=== PATIENT | female | born 2000 | race Caucasian/White ===

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

== ENCOUNTER 2020-01-01 11:29 | Emergency (ER) | payer OTHER ==
[~2020-01-01] VITALS: Ht 162.5 cm; Wt 59.9 kg
[~2020-01-01 11:29] MED LIST: ARIP2TAB20 PO; ARIPIPRAZOLE 2 MG TABLET; CETI10TA17 PO; MONO-LINYAH 28 TABLET; NORG1TAB77 PO; SERT100T8 PO; SERTRALINE HCL 100 MG TABLET
[2020-01-01 11:41] VITALS: BP 120/75
--- OUTSIDE RECORDS SUMMARY | 2020-01-01 11:45 | XMS REPORT | CCD ---
Author Author Melani Hussein Organization Raquel Aviles MD, [facility] Address [address] [place] [address] Phone Care Team Providers Care Agency Operator Name Role Phone PP Unavailable CCM Unavailable Summary Purpose Interface Exchange Insurance Providers Payer name Policy type / Coverage type Covered constitution party ID Effective Begin Date Effective End Date LEWIS PORTILLO (2012 THRU) Ozzy [id number] Unknown Family history Runs in the family Diagnosis Age At Onset Anemia Unknown Hyperlipidemia Unknown Thyroid Unknown Mother Diagnosis Age At Onset Anemia Unknown Social History Social History Element Codes Description Effective Dates Marital status Unknown S renato Co-habitating - Tana fina) Koki 04/18/2019 Number of children Unknown 0 04/18/2019 Employment Unknown Curre ntly employed [employer] 04/18/[address]: 8999539 Quit less than 5 years ago 04/18/[address]: 463003280 Never drinks alcohol 04/18/2019 Has the patient ever used illegal drugs? Unknown Has never used illegal drugs 019 Allergies, Adverse Reactions, Alerts Substance Reaction Codes Entered Date Inactivated Date Status NO KNOWN DRUG ALLERGIES Unknown 04/18/2019 No Inactive Date Active Past Medical History Illness Codes Condition Status Onset Date Resolved Date Encounter for survei llance of contraceptive pills ICD-9: V25.41 ICD-10: Z30.41 Active 04/18/2019 Unknown Generalized anxiety disorder ICD-9: 300.00 ICD-10: F41.1 Active 04/18/2019 Unknown Major depressive dis order, single episode, moderate ICD-9: 296.22 ICD-10: F32.1 Active 04/18/2019 Unknown Problems Condition Codes Effectiv e Dates Condition Status Encounter for survei llance of contraceptive pills ICD-9: V25.41 ICD-10: Z30.41 04/18/2019 Active Generalized anxiety disorder ICD-9: 300.00 ICD-10: F41.1 04/18/2019 Active Major depressive dis order, single episode, moderate ICD-9: 296.22 ICD-10: F32.1 04/18/2019 Active Medications Medication Codes Instruc tions Start Date Stop Date Sta tus Fill Instructions [place]-Linyah 0.25 mg- 35 mcg tablet RxNorm: 7141423 1 Tablet(s) PO UD 04/18/2019 No Stop Date Active Abilify 2 mg tablet RxNorm: 195546 1 Tablet(s) PO daily No Start Date Active Zoloft 50 mg tablet RxNorm: 402342 1 Tablet(s) PO daily No Start Date Active Medication Administered No Medication Administered data Immunizations No Immunization data Assessments Condition Codes Effectiv e Dates Generalized anxiety disorder ICD-10: F41.1 ICD-9: 300.00 04/18/2019 Major depressive disorder, single episode, moderate ICD-10: F32.1 ICD-9: 296.22 04/18/2019 Encounter for surveillance of contraceptive pills ICD-10: Z30.41 ICD-9: V25.41 04/18/2019 Reason For Visit Reason For Visit Effective Dates Notes medication follow up 04/18/2019 refill Results Observation Observation Code Item Item Code Result Date Urine Bhcg [id number] Urine BHCG Negative 04/18/2019 Review of Systems System Result Effective Dates Constitutional No recent illness 04/18/2019 Constitutional No chills 04/18/2019 Constitutional No diaphoresis 04/18/2019 Constitutional No fever 04/18/2019 Eyes No eye erythema Ears/Nose/Throat/Neck No nasal allergies 04/18/2019 Ears/Nose/Throat/Neck No nasal discharge 04/18/2019 Cardiovascular No chest pain/pressure 04/18/2019 Cardiovascular No dyspnea 04/18/2019 Respiratory No chest congestion 04/18/2019 Respiratory No cough Gastrointestinal No abdominal pain 04/18/2019 Gastrointestinal No constipation 04/18/2019 Gastrointestinal No diarrhea 04/18/2019 Gastrointestinal No hematochezia 04/18/2019 Gastrointestinal No melena 04/18/2019 Gastrointestinal No nausea 04/18/2019 Gastrointestinal No vomiting 04/18/2019 Musculoskeletal No joint complaint 04/18/2019 Dermatologic No rash Neurologic No alteration of consciousness 04/18/2019 Neurologic No mental status change 04/18/2019 Physical Exam Exam Name System Name It em Name Status Result Effective Dates Notes Full Exam - General 1994 Constitutional general appearance Overall: well developed 04/18/2019 None Full Exam - General 1994 Constitutional general appearance Overall: in no acute distress 04/18/2019 None Full Exam - General 1994 Constitutional general appearance Overall: well nourished 04/18/2019 None Full Exam - General 1994 Eyes conjunctiva/eyelids Overall: conjunctiva clear 04/18/2019 None Full Exam - General 1994 Eyes conjunctiva/eyelids Overall: cornea clear 04/18/2019 None Full Exam - General 1994 Eyes conjunctiva/eyelids Overall: eyelids normal 04/18/2019 None Full Exam - General 1994 Eyes pupils and irises Overall: pupils equal, round, reactive to light and accomodation 04/18/2019 None Full Exam - General 1994 Ears/Nose/Throat otoscopic exam Overall: external auditory canals clear 04/18/2019 None Full Exam - General 1994 Ears/Nose/Throat otoscopic exam Overall: tympanic membranes clear 04/18/2019 None Full Exam - General 1994 Ears/Nose/Throat lips/teeth/gingiva Overall: benign lips 04/18/2019 None Full Exam - General 1994 Ears/Nose/Throat oral cavity/pharynx/larynx Overall: oral mucosa clear 04/18/2019 None Full Exam - General 1994 Ears/Nose/Throat oral cavity/pharynx/larynx Overall: oropharyngeal mucosa clear 04/18/2019 None Full Exam - General 1994 Respiratory auscultation Overall: breath sounds clear bilaterally 04/18/2019 None Full Exam - General 1994 Respiratory respiratory effort/rhythm Overall: no retractions 04/18/2019 None Full Exam - General 1994 Respiratory respiratory effort/rhythm Overall: normal rate 04/18/2019 None Full Exam - General 1994 Cardiovascular extremities Overall: no clubbing 04/18/2019 None Full Exam - General 1994 Cardiovascular auscultation of heart Overall: regular rate 04/18/2019 None Full Exam - General 1994 Cardiovascular auscultation of heart Overall: normal heart sounds 04/18/2019 None Full Exam - General 1994 Abdomen abdominal exam Overall: no tenderness 04/18/2019 None Full Exam - General 1994 Abdomen abdominal exam Overall: normal bowel sounds 04/18/2019 None Full Exam - General 1994 Musculoskeletal gait and station Overall: normal gait 04/18/2019 None Full Exam - General 1994 Musculoskeletal gait and station Overall: normal station 04/18/2019 None Full Exam - General 1994 Musculoskeletal head and neck Overall: head atraumatic 04/18/2019 None Full Exam - General 1994 Neurologic cranial nerves Overall: crainial nerves 2 - 12 grossly intact 04/18/2019 None Full Exam - General 1994 Psychiatric orientation/consciousness Overall: oriented to person, place and time 04/18/2019 None Full Exam - General 1994 Psychiatric mood and affect Overall: normal mood and affect 04/18/2019 None Full Exam - General 1994 Psychiatric appearance Overall: well-groomed, good eye contact 04/18/2019 None Procedures No Procedures data Vital Signs Date Vital 04/18/2019 Blood Pressure 1: 108/66 Code: 8480-6 BMI: 22.3 Code: 79442-9 Heart Rate 1: 81 bpm Height: 5'4" SpO2: 97% Weight: 130 lbs Functional Status No Functional Status data History of Present Illness Symptom Name Status Resu lt Effective Date Notes Additional Comments me dication: OCP 04/18/2019 None Location oral intake 04/18/2019 None Quality chronic 04/18/2019 None Advance Directives No Advance Directive data Encounters Encounter Performer Loca tion Codes Date OFFICE VISIT, NEW - LEVEL 3 Diagnosis: Encounter for surveillance of contraceptive pills[ICD10: Z30.41] Diagnosis: Generalized anxiety disorder[ICD10: F41.1] Diagnosis: Major depressive disorder, single episode, moderate[ICD10: F32.1] Albertina Aviles MD, [facility] CPT-4: 85249 04/18/2019 Plan of Care Planned Activity Notes C odes Status Date Visit Plan: control - will re fill, no concerns at this time. Chronic Depression and anxiety - the pt has symptoms of chronic anxiety and depression that have been fairly well controlled since the last office visit. The pt has expected periods of exacerbation with abatement of the symptoms with change in situational exposure. No change in current medications. 04/18/2019 Appointment: Albertina Hussein WPtel: [address] [place], [place] [id number] New Patient 04/18/2019 Patient Education: Patient Medication Summary Completed 04/18/2019 Patient Education: Depression Completed 04/18/2019 Instructions Comment . control - wi ll refill, no concerns at this time. Chronic Depression and anxiety - the pt has symptoms of chronic anxiety and depression that have been fairly well controlled since the last office visit. The pt has expected periods of exacerbation with abatement of the symptoms with change in situational exposure. No change in current medications.
--- OUTSIDE RECORDS SUMMARY | 2020-01-01 11:45 | XMS REPORT | CCD ---
Author Author Melani Hussein Organization Raquel Aviles MD, [facility] Address [address] [place] [address] Phone Care Team Providers Care Photo Mask Pattern Generator Name Role Phone PP Unavailable CCM Unavailable Summary Purpose Interface Exchange Insurance Providers Payer name Policy type / Coverage type Covered libertarian ID Effective Begin Date Effective End Date LEWIS PORTILLO (2012 THRU) Ozzy [id number] Unknown Family history Runs in the family Diagnosis Age At Onset Anemia Unknown Hyperlipidemia Unknown Thyroid Unknown Mother Diagnosis Age At Onset Anemia Unknown Social History Social History Element Codes Description Effective Dates Marital status Unknown S renato Co-habitating - Tana fina) Koki 04/18/2019 Number of children Unknown 0 04/18/2019 Employment Unknown Curre ntly employed [employer] 04/18/[address]: 8365404 Quit less than 5 years ago 04/18/[address]: 800745120 Never drinks alcohol 04/18/2019 Has the patient [...] Date Stop Date Sta tus Fill Instructions Abilify 2 mg tablet RxNorm: 978790 1 Tablet(s) PO daily 05/18/2019 07/16/2019 Active Zoloft 50 mg tablet RxNorm: 726519 1 Tablet(s) PO daily 05/18/2019 07/16/2019 Active [place]-Linyah 0.25 mg- 35 mcg tablet RxNorm: 0874255 1 Tablet(s) PO UD 04/18/2019 No Stop Date Active Abilify 2 mg tablet RxNorm: 728954 1 Tablet(s) PO daily No Start Date 05/17/2019 Inactive Zoloft 50 mg tablet RxNorm: 944499 1 Tablet(s) PO daily No Start Date 05/17/2019 Inactive Medication Administered No Medication Administered data Immunizations [...] Item Item Code Result Date Urine Bhcg [id number] Urine BHCG Negative 04/18/2019 Review of Systems [...] 1: 108/66 Code: 8480-6 BMI: 22.3 Code: 06424-9 Heart Rate 1: 81 bpm Height: 5'4" [...] single episode, moderate[ICD10: F32.1] [facility] CPT-4: 97001 04/18/2019 Plan of Care Planned Activity Notes [...] current medications. 04/18/2019 Appointment: Albertina Hussein WPtel: [address] [place], [place] [id number] New Patient 04/18/2019 Patient Education: Patient Medication [...]
--- OUTSIDE RECORDS SUMMARY | 2020-01-01 11:46 | XMS REPORT | CCD ---
Author Author Melani Hussein Organization Raquel Aviles MD, [facility] Address [address] [place] [address] Phone Care Team Providers Care Posting Machine Operator Name Role Phone PP Unavailable CCM Unavailable Summary Purpose Interface Exchange Insurance Providers Payer name Policy type / Coverage type Covered democrat ID Effective Begin Date Effective End Date LEWIS PORTILLO (2012 THRU) Ozzy [id number] Unknown Family history Runs in the family Diagnosis Age At Onset Anemia Unknown Hyperlipidemia Unknown Thyroid Unknown Mother Diagnosis Age At Onset Anemia Unknown Social History Social History Element Codes Description Effective Dates Marital status Unknown S renato Co-habitating - Tana fina) Koki 04/18/2019 Number of children Unknown 0 04/18/2019 Employment Unknown Curre ntly employed [employer] 04/18/[address]: 3409176 Quit less than 5 years ago 04/18/[address]: 110966452 Never drinks alcohol 04/18/2019 Has the patient [...] Date Stop Date Sta tus Fill Instructions [place]-Linyah 0.25 mg- 35 mcg tablet RxNorm: 3327613 1 Tablet(s) PO UD 04/18/2019 No Stop Date Active Abilify 2 mg tablet RxNorm: 447787 1 Tablet(s) PO daily No Start Date Active Zoloft 50 mg tablet RxNorm: 654098 1 Tablet(s) PO daily No Start Date [...] Notes medication follow up 04/18/2019 refill Results No Results data Review of Systems System Result Effective Dates [...] Effective Dates Notes Full Exam - General 1995 Constitutional general appearance Overall: well developed 04/18/2019 [...] 1: 108/66 Code: 8480-6 BMI: 22.3 Code: 48737-4 Heart Rate 1: 81 bpm Height: 5'4" [...] moderate[ICD10: F32.1] [facility] CPT-4: 39244 04/18/2019 Plan of Care Planned Activity Notes [...] exposure. No change in current medications. 04/18/2019 Patient Education: Patient Medication Summary Completed 04/18/2019 Patient Education: Depression Completed 04/18/2019 Care Plan: Urine Bhcg Ordered 04/18/2019 Instructions Comment . control - wi [...]
--- OUTSIDE RECORDS SUMMARY | 2020-01-01 11:46 | XMS REPORT | Continuity of Care Document ---
Author Organization Unknown Address Unknown Phone Unavailable Allergies Active Description Code Type Severity Reaction Onset Reported/Identified Relationship to Patient Clinical Status Yes No Known Drug Allergies [id number] Drug Allergy Unknown N/A 12/11/2018 Medications There is no data. Problems Date Dx Coded Attending Type Code Diagnosis Diagnosed By 12/12/2018 DEBBY POTTER, CONCEPCIÓN Arreloa Ot F17.290 NICOTINE DEPENDENCE, OTHER TOBACCO PRODU 12/12/2018 CONCEPCIÓN GUARDADO MD, Ot F32.9 MAJOR DEPRESSIVE DISORDER, SINGLE EPISOD 12/12/2018 CONCEPCIÓN GUARDADO MD, Ot F34.1 DYSTHYMIC DISORDER 12/12/2018 CONCEPCIÓN GUARDADO MD, Ot F41.9 ANXIETY DISORDER, UNSPECIFIED 12/12/2018 CONCEPCIÓN GUARDADO MD, Ot T45.0X2A POISONING BY ANTIALLERG/ANTIEMETIC, SELF Procedures There is no data. Results Test Result Range Complete blood count (CBC) with automate d white blood cell (WBC) differential - 12/11/18 17:55 Blood leukocytes automated count (number/volume) 6.7 10*3/uL 4.3-11.0 Blood erythrocytes automated count (number/volume) 4.09 10*6/uL 4.35-5.85 Venous blood hemoglobin measurement (mass/volume) 12.5 g/dL 11.5-16.0 Blood hematocrit (volume fraction) 36 % 35-52 Automated erythrocyte mean corpuscular volume 88 [ foz_us] 80-99 Automated erythrocyte mean corpuscular h emoglobin (mass per erythrocyte) 31 pg 25-34 Automated erythrocyte mean corpuscular h emoglobin concentration measurement (mass/volume) 35 g/dL 32-36 Automated erythrocyte distribution width ratio 12. 6 % 10.0- 14.5 Automated blood platelet count (count/volume) 278 10*3/uL 130-400 Automated blood platelet mean volume measurement 9.6 [foz_us] 7.4-10.4 Automated blood neutrophils/100 leukocytes 56 % 42-75 Automated blood lymphocytes/100 leukocytes 33 % 12-44 Blood monocytes/100 leukocytes 7 % 0-12 Automated blood eosinophils/100 leukocytes 4 % 0-10 Automated blood basophils/100 leukocytes 0 % 0-10 Blood neutrophils automated count (number/volume) 3.8 10*3 1.8-7.8 Blood lymphocytes automated count (number/volume) 2.2 10*3 1.0-4.0 Blood monocytes automated count (number/volume) 0. 5 10*3 0.0-1.0 Automated eosinophil count 0.3 10*3/uL 0 .0-0.3 Automated blood basophil count (count/volume) 0.0 10*3/uL 0.0-0.1 Comprehensive metabolic panel - 12/11/18 17:55 Serum or plasma sodium measurement (moles/volume) 142 mmol/L 135-145 Serum or plasma potassium measurement (moles/volume) 4.2 mmol/L 3.6-5.0 Serum or plasma chloride measurement (moles/volume) 107 mmol/L 98-107 Carbon dioxide 26 mmol/L 21-32 Serum or plasma anion gap determination (moles/volume) 9 mmol/L 5-14 Serum or plasma urea nitrogen measurement (mass/volume ) 8 mg/dL 7-18 Serum or plasma creatinine measurement (mass/volume) 0.75 mg/dL 0.60-1.30 Serum or plasma urea nitrogen/creatinine mass ratio 11 NRG Serum or plasma creatinine measurement w ith calculation of estimated glomerular filtration rate > NRG Serum or plasma glucose measurement (mass/volume) 95 mg/dL 70-105 Serum or plasma calcium measurement (mass/volume) 9.7 mg/dL 8.5-10.1 Serum or plasma total bilirubin measurement (mass/volu me) 0.6 mg/dL 0.1-1.0 Serum or plasma alkaline phosphatase lori surement (enzymatic activity/volume) 57 U/L 40-136 Serum or plasma aspartate aminotransfera se measurement (enzymatic activity/volume) 21 U/L 5-34 Serum or plasma alanine aminotransferase measurement (enzymatic activity/volume) 13 U/L 0-55 Serum or plasma protein measurement (mass/volume) 7.0 g/dL 6.4-8.2 Serum or plasma albumin measurement (mass/volume) 4.2 g/dL 3.2-4.5 CALCIUM CORRECTED 9.5 mg/dL 8.5-10.1 Serum or plasma amylase measurement (enz ymatic activity/volume) - 12/11/18 17:55 Serum or plasma amylase measurement (enzymatic activit y/volume) 52 U/L 25-125 Complete urinalysis with reflex to cultu re - 12/11/18 17:55 Urine color determination YELLOW NRG Urine clarity determination SLIGHTLY CLOUDY NRG Urine pH measurement by test strip 6 5-9 Specific gravity of urine by test strip 1.020 1.016-1.022 Urine protein assay by test strip, semi-quantitative NEGATIVE NEGATIVE Urine glucose detection by automated test strip NE GATIVE NEGATIVE Erythrocytes detection in urine sediment by light micr oscopy 5+ NEGATIVE Urine ketones detection by automated test strip NE GATIVE NEGATIVE Urine nitrite detection by test strip NEGATIVE NEGATIVE Urine total bilirubin detection by test strip NEGA TIVE NEGATIVE Urine urobilinogen measurement by automated test strip (mass/volume) NORMAL NORMAL Urine leukocyte esterase detection by dipstick NEG ATIVE NEGATIVE Automated urine sediment erythrocyte cou nt by microscopy (number/high power field) [HPF] NRG Automated urine sediment leukocyte count by microscopy (number/high power field) NONE NRG Bacteria detection in urine sediment by light microsco py TRACE NRG Squamous epithelial cells detection in u rine sediment by light microscopy 2-5 NRG Crystals detection in urine sediment by light microsco py NONE NRG Casts detection in urine sediment by light microscopy NONE NRG Mucus detection in urine sediment by light microscopy SMALL NRG Complete urinalysis with reflex to culture NO NRG Serum or plasma salicylates measurement (mass/volume) - 12/11/18 17:55 Serum or plasma salicylates measurement (mass/volume) < mg/dL 5.0-20.0 Serum or plasma acetaminophen measuremen t (mass/volume) - 12/11/18 17:55 Serum or plasma acetaminophen measurement (mass/volume ) < ug/mL 10-30 Serum or plasma ethanol measurement (mas s/volume) - 12/11/18 17:55 Serum or plasma ethanol measurement (mass/volume) < mg/dL <10 Urine beta human chorionic gonadotropin (hCG) measurement - 12/11/18 17:55 Urine beta human chorionic gonadotropin (hCG) measurem ent NEGATIVE NEGATIVE Serum or plasma thyrotropin measurement by detection limit <=0.05 miu/l (units/volume) - 12/11/18 17:55 Serum or plasma thyrotropin measurement by detection limit <=0.05 miu/l (units/volume) 2.00 u[iU]/mL 0.35-4.94 Urine drug screening test - 12/11/18 17: 55 Urine phencyclidine detection by screening method NEGATIVE NEGATIVE Urine benzodiazepines detection by screening method NEGATIVE NEGATIVE Urine cocaine detection NEGATIVE NEGATI VE Urine amphetamines detection by screening method N EGATIVE NEGATIVE Urine methamphetamine detection by screening method NEGATIVE NEGATIVE Urine cannabinoids detection by screening method N EGATIVE NEGATIVE Urine opiates detection by screening method NEGATI VE NEGATIVE Urine barbiturates detection NEGATIVE N EGATIVE Screening urine tricyclic antidepressants detection NEGATIVE NEGATIVE Urine methadone detection by screening method NEGA TIVE NEGATIVE Urine oxycodone detection NEGATIVE NEGA TIVE Urine propoxyphene detection NEGATIVE N EGATIVE Complete blood count (CBC) with automate d white blood cell (WBC) differential - 12/12/18 03:35 Blood leukocytes automated count (number/volume) 7.1 10*3/uL 4.3-11.0 Blood erythrocytes automated count (number/volume) 4.32 10*6/uL 4.35-5.85 Venous blood hemoglobin measurement (mass/volume) 13.2 g/dL 11.5-16.0 Blood hematocrit (volume fraction) 38 % 35-52 Automated erythrocyte mean corpuscular volume 89 [ foz_us] 80-99 Automated erythrocyte mean corpuscular h emoglobin (mass per erythrocyte) 31 pg 25-34 Automated erythrocyte mean corpuscular h emoglobin concentration measurement (mass/volume) 34 g/dL 32-36 Automated erythrocyte distribution width ratio 12. 7 % 10.0- 14.5 Automated blood platelet count (count/volume) 268 10*3/uL 130-400 Automated blood platelet mean volume measurement 9.7 [foz_us] 7.4-10.4 Automated blood neutrophils/100 leukocytes 47 % 42-75 Automated blood lymphocytes/100 leukocytes 41 % 12-44 Blood monocytes/100 leukocytes 8 % 0-12 Automated blood eosinophils/100 leukocytes 4 % 0-10 Automated blood basophils/100 leukocytes 0 % 0-10 Blood neutrophils automated count (number/volume) 3.3 10*3 1.8-7.8 Blood lymphocytes automated count (number/volume) 2.9 10*3 1.0-4.0 Blood monocytes automated count (number/volume) 0. 6 10*3 0.0-1.0 Automated eosinophil count 0.3 10*3/uL 0 .0-0.3 Automated blood basophil count (count/volume) 0.0 10*3/uL 0.0-0.1 Comprehensive metabolic panel - 12/12/18 03:35 Serum or plasma sodium measurement (moles/volume) 143 mmol/L 135-145 Serum or plasma potassium measurement (moles/volume) 4.0 mmol/L 3.6-5.0 Serum or plasma chloride measurement (moles/volume) 109 mmol/L 98-107 Carbon dioxide 24 mmol/L 21-32 Serum or plasma anion gap determination (moles/volume) 10 mmol/L 5-14 Serum or plasma urea nitrogen measurement (mass/volume ) 8 mg/dL 7-18 Serum or plasma creatinine measurement (mass/volume) 0.72 mg/dL 0.60-1.30 Serum or plasma urea nitrogen/creatinine mass ratio 11 NRG Serum or plasma creatinine measurement w ith calculation of estimated glomerular filtration rate > NRG Serum or plasma glucose measurement (mass/volume) 94 mg/dL 70-105 Serum or plasma calcium measurement (mass/volume) 9.4 mg/dL 8.5-10.1 Serum or plasma total bilirubin measurement (mass/volu me) 0.4 mg/dL 0.1-1.0 Serum or plasma alkaline phosphatase lori surement (enzymatic activity/volume) 68 U/L 40-136 Serum or plasma aspartate aminotransfera se measurement (enzymatic activity/volume) 14 U/L 5-34 Serum or plasma alanine aminotransferase measurement (enzymatic activity/volume) 9 U/L 0-55 Serum or plasma protein measurement (mass/volume) 7.2 g/dL 6.4-8.2 Serum or plasma albumin measurement (mass/volume) 4.3 g/dL 3.2-4.5 CALCIUM CORRECTED 9.2 mg/dL 8.5-10.1 Encounters ACCT No. Visit Date/Time Discharge Status Pt. Type Provider Facility Loc./Unit Complaint [id number] 04/12/2019 14:49:25 04/12/2019 23:59:5 9 CLS Outpatient [id number] 12/11/2018 19:55:00 019 15:55:00 DIS Outpatient SANDNESS MD, CONCEPCIÓN Arreola [facility] ICU INTENTION DRUG OVERDOSE, SUICIDE ATTEMPT
[2020-01-01 12:39] LABS: BILIRUBIN,URINE NEGATIVE (NEGATIVE); CLARITY,URINE CLEAR; COLOR,URINE YELLOW; GLUCOSE, URINE (UA) NEGATIVE (NEGATIVE); KETONES,URINE NEGATIVE (NEGATIVE); LEUKOCYTE ESTERASE ,URINE NEGATIVE (NEGATIVE); NITRITE,URINE NEGATIVE (NEGATIVE); PROTEIN,URINE NEGATIVE (NEGATIVE)
[2020-01-01 12:45] LABS: BACTERIA,URINE TRACE /HPF; RBC,URINE RARE /HPF
[2020-01-01 12:47] LABS: BASOPHILS % (AUTO) 1 % (0-10); EOSINOPHILS # (AUTO) 0.4 10^3/uL (0.0-0.3); EOSINOPHILS % (AUTO) 6 % (0-10); HEMATOCRIT 36 % (35-52); HEMOGLOBIN 12.2 G/DL (11.5-16.0); LYMPHOCYTES # (AUTO) 2.4 X 10^3 (1.0-4.0); LYMPHOCYTES % (AUTO) 39 % (12-44); MEAN CORPUSCULAR HEMOGLOBIN 30 PG (25-34); MEAN CORPUSCULAR HGB CONC 34 G/DL (32-36); MEAN CORPUSCULAR VOLUME 88 FL (80-99); MEAN PLATELET VOLUME 9.5 FL (7.4-10.4); MONOCYTES # (AUTO) 0.5 X 10^3 (0.0-1.0); MONOCYTES % (AUTO) 8 % (0-12); NEUTROPHILS # (AUTO) 2.9 X 10^3 (1.8-7.8); NEUTROPHILS % (AUTO) 47 % (42-75); PLATELET COUNT 245 10^3/uL (130-400); RED CELL DISTRIBUTION WIDTH 12.6 % (10.0-14.5); WHITE BLOOD COUNT 6.2 10^3/uL (4.3-11.0)
[2020-01-01 12:49] LABS: AMPHETAMINE SCREEN, URINE NEGATIVE (NEGATIVE); BARBITURATE SCREEN URINE NEGATIVE (NEGATIVE); BENZODIAZEPINES SCREEN URINE NEGATIVE (NEGATIVE); CANNABINOID SCREEN, URINE NEGATIVE (NEGATIVE); COCAINE SCREEN URINE NEGATIVE (NEGATIVE); METHADONE STAT NEGATIVE (NEGATIVE); METHAMPHETAMINE SCREEN URINE S NEGATIVE (NEGATIVE); OPIATE SCREEN URINE NEGATIVE (NEGATIVE); OXYCODONE STAT NEGATIVE (NEGATIVE); PROPOXYPHENE STAT NEGATIVE (NEGATIVE); TRICYCLIC ANTIDEPRESSANTS SCRE NEGATIVE (NEGATIVE)
[2020-01-01 13:06] LABS: ALANINE AMINOTRANSFERASE 7 U/L (0-55); ALBUMIN 4.2 GM/DL (3.2-4.5); ALKALINE PHOSPHATASE 52 U/L (40-136); BILIRUBIN,TOTAL 0.4 MG/DL (0.1-1.0); BUN/CREATININE RATIO 14; CALCIUM 9.4 MG/DL (8.5-10.1); CARBON DIOXIDE 25 MMOL/L (21-32); CHLORIDE 106 MMOL/L (98-107); GFR ESTIMATED > 60; GLUCOSE 78 MG/DL (70-105); POTASSIUM 3.9 MMOL/L (3.6-5.0); SALICYLATE < 5.0 MG/DL (5.0-20.0); SODIUM 141 MMOL/L (135-145)
[2020-01-01 13:09] LABS: ACETAMINOPHEN < 10 UG/ML (10-30)
--- NOTE | 2020-01-01 13:10 | ED Psychosocial ---
General Chief Complaint: Psych/Social Disorder Stated Complaint: SUICIDAL THOUGHTS Nursing Triage Note: Pt amb to triage with complaint of suicidal thoughts. she called the [facility] in [place] and was instructed to come to ER to be screened. [facility] she follows monthly with [facility]. has not called them today. has been having increasing suicidal thoughts and has superficial healing cuts on forearms. History of Present Illness Date Seen by Provider: Jan 01, 2020 Time Seen by Provider: 11:50 Initial Comments 19 year old female presents for depression and suicidal ideation. Symptoms have been present for 1-1 1/2 weeks. Does not have plan and has no guns/knives in her home. She lives with her fiance and works at [employer]. She sees counselors at [facility]. She has not contacted them or called [facility]. She took allergy pills in 2018 and was admitted here. She was [place] inpatient treatment of depression at age 14, [place]. History of cutting, reports last cutting was 2-3 days, superficial on arms. Timing/Duration: getting worse, intermittent Severity: mild Associated Symptoms: impaired concentration, insomnia, suicidal ideation Allergies and Home Medications Allergies Coded Allergies: No Known Drug Allergies (Unverified , 12/11/18) Home Medications Aripiprazole 2 Mg Tablet, 1 MG PO HS, (Reported) TAKES 1/2 (2MG) TABLET Cetirizine HCl 10 Mg Tablet, 10 MG PO DAILY PRN for ALLERGIES, (Reported) Norgestimate-Ethinyl Estradiol 1 Each Tablet, 1 TAB PO 1300, (Reported) Sertraline HCl 100 Mg Tablet, 100 MG PO DAILY, (Reported) Patient Home Medication List Home Medication List Reviewed: Yes Review of Systems Constitutional: no symptoms reported, see HPI EENTM: see HPI, no symptoms reported Respiratory: no symptoms reported, see HPI Cardiovascular: no symptoms reported, see HPI Gastrointestinal: no symptoms reported, see HPI : No Musculoskeletal: no symptoms reported, see HPI Skin: see HPI, other (cutting to arms) Psychiatric/Neurological: See HPI, Depressed, Emotional Problems All Other Systems Reviewed Negative Unless Noted: Yes Past Gnxbebc-Fqhfzy-Ltabit Hx Past Med/Social Hx: Reviewed Nursing Past Med/Soc Hx Patient Social History Alcohol Use: Occasionally Uses Number of Drinks Today: FF Alcohol Beverage of Choice: Cheap Liquor, Vodka Recreational Drug Use: No Smoking Status: Current Someday Smoker Recent Foreign Travel: No Contact w/Someone Who Travel: No Recent Infectious Disease Expo: No Recent Hopitalizations: No Immunizations Up To Date Tetanus Booster (TDap): Unknown PED Vaccines UTD: Yes Seasonal Allergies Seasonal Allergies: Yes Past Medical History Surgeries: No Respiratory: No Cardiac: No Neurological: No Genitourinary: No Gastrointestinal: No Musculoskeletal: No Endocrine: No HEENT: No Cancer: No Psychosocial: Yes Anxiety, Depression Integumentary: No Family Medical History No Pertinent Family Hx Physical Exam Vital Signs - First Documented 01/01/20 11:41 Temp 36.8 Pulse 80 Resp 17 B/P (MAP) 120/75 (90) Pulse Ox 98 O2 Delivery Room Air Capillary Refill : Less Than 3 Seconds Height, Weight, BMI Height: 5'4.00" Weight: 130lbs. 0.0oz. [id number]; 22.00 BMI Method:Stated General Appearance: WD/WN, no apparent distress HEENT: PERRL/EOMI, normal ENT inspection, TMs normal, pharynx normal Neck: non-tender, full range of motion, supple, normal inspection Respiratory: chest non-tender, lungs clear, normal breath sounds Cardiovascular: normal peripheral pulses, regular rate, rhythm Gastrointestinal: normal bowel sounds, non tender, soft Extremities: normal range of motion, non-tender, normal inspection, no pedal edema Neurologic/Psychiatric: chain repairer II-XII nml as tested, no motor/sensory deficits, alert, normal mood/affect, oriented x 3 Appearance/Memory: appropriate appearance, appropriate insight, neat, no memory impairment Behavior/Eye Contact: cooperative, good eye contact, normal speech Thoughts/Hallucinations: normal thought pattern, no apparent hallucination Skin: normal color, warm/dry, other (superficial abrasions to arms, no signs of erythema, warmth or drainage. ) Lymphatic: no adenopathy Progress/Results/Core Measures Results/Orders Lab Results Laboratory Tests Test 01/01/20 12:32 01/01/20 12:41 Range/Units Urine Color YELLOW Urine Clarity CLEAR Urine pH 6.0 5-9 Urine Specific Raymond 1.025 H 1.016-1.022 Urine Protein NEGATIVE NEGATIVE Urine Glucose (UA) NEGATIVE NEGATIVE Urine Ketones NEGATIVE NEGATIVE Urine Nitrite NEGATIVE NEGATIVE Urine Bilirubin NEGATIVE NEGATIVE Urine Urobilinogen 0.2 < = 1.0 MG/DL Urine Leukocyte Esterase NEGATIVE NEGATIVE Urine RBC (Auto) NEGATIVE NEGATIVE Urine RBC RARE /HPF Urine WBC NONE /HPF Urine Squamous Epithelial Cells 2-5 /HPF Urine Crystals NONE /LPF Urine Bacteria TRACE /HPF Urine Casts NONE /LPF Urine Mucus NEGATIVE /LPF Urine Culture Indicated NO Urine Opiates Screen NEGATIVE NEGATIVE Urine Oxycodone Screen NEGATIVE NEGATIVE Urine Methadone Screen NEGATIVE NEGATIVE Urine Propoxyphene Screen NEGATIVE NEGATIVE Urine Barbiturates Screen NEGATIVE NEGATIVE Ur Tricyclic Antidepressants Screen NEGATIVE NEGATIVE Urine Phencyclidine Screen NEGATIVE NEGATIVE Urine Amphetamines Screen NEGATIVE NEGATIVE Urine Methamphetamines Screen NEGATIVE NEGATIVE Urine Benzodiazepines Screen NEGATIVE NEGATIVE Urine Cocaine Screen NEGATIVE NEGATIVE Urine Cannabinoids Screen NEGATIVE NEGATIVE White Blood Count 6.2 4.3-11.0 10^3/uL Red Blood Count 4.10 L 4.35-5.85 10^6/uL Hemoglobin 12.2 11.5-16.0 G/DL Hematocrit 36 35-52 % Mean Corpuscular Volume 88 80-99 FL Mean Corpuscular Hemoglobin 30 25-34 PG Mean Corpuscular Hemoglobin Concent 34 32-36 G/DL Red Cell Distribution Width 12.6 10.0-14.5 % Platelet Count 245 130-400 10^3/uL Mean Platelet Volume 9.5 7.4-10.4 FL Neutrophils (%) (Auto) 47 42-75 % Lymphocytes (%) (Auto) 39 12-44 % Monocytes (%) (Auto) 8 0-12 % Eosinophils (%) (Auto) 6 0-10 % Basophils (%) (Auto) 1 0-10 % Neutrophils # (Auto) 2.9 1.8-7.8 X 10^3 Lymphocytes # (Auto) 2.4 1.0-4.0 X 10^3 Monocytes # (Auto) 0.5 0.0-1.0 X 10^3 Eosinophils # (Auto) 0.4 H 0.0-0.3 10^3/uL Basophils # (Auto) 0.0 0.0-0.1 10^3/uL Sodium Level 141 135-145 MMOL/L Potassium Level 3.9 3.6-5.0 MMOL/L Chloride Level 106 98-107 MMOL/L Carbon Dioxide Level 25 21-32 MMOL/L Anion Gap 10 5-14 MMOL/L Blood Urea Nitrogen 10 7-18 MG/DL Creatinine 0.70 0.60-1.30 MG/DL Estimat Glomerular Filtration Rate > 60 BUN/Creatinine Ratio 14 Glucose Level 78 70-105 MG/DL Calcium Level 9.4 8.5-10.1 MG/DL Corrected Calcium 9.2 8.5-10.1 MG/DL Total Bilirubin 0.4 0.1-1.0 MG/DL Aspartate Amino Transf (AST/SGOT) 17 5-34 U/L Alanine Aminotransferase (ALT/SGPT) 7 0-55 U/L Alkaline Phosphatase 52 40-136 U/L Total Protein 7.0 6.4-8.2 GM/DL Albumin 4.2 3.2-4.5 GM/DL Free Thyroxine 0.81 0.70-1.48 NG/DL TSH [place] Testing 5.17 H 0.35-4.94 UIU/ML Salicylates Level < 5.0 L 5.0-20.0 MG/DL Acetaminophen Level < 10 L 10-30 UG/ML Serum Alcohol < 10 <10 MG/DL My Orders Orders - JUVE CEDENO Ua Culture If Indicated (01/01/20 12:25) Cbc With Automated Diff (01/01/20 12:25) Comprehensive Metabolic Panel (01/01/20 12:25) Alcohol (01/01/20 12:25) Drug Screen Stat (Urine) (01/01/20 12:25) Acetaminophen (01/01/20 12:25) Salicylate (01/01/20 12:25) Ekg Tracing (01/01/20 12:25) Thyroid Analyzer (01/01/20 12:25) Urine Bedside (01/01/20 12:25) Free T4 (Free Thyroxine) (01/01/20 12:41) Vital Signs/I&O 01/01/20 11:41 Temp 36.8 Pulse 80 Resp 17 B/P (MAP) 120/75 (90) Pulse Ox 98 O2 Delivery Room Air Blood Pressure Mean: 90 Progress Progress Note : Time: 11:50 Progress Note patient seen and evaluated, will obtain labs and EKG. Options for inpatient vs outpatient mental health discussed with the patient at length, she would prefer in patient, voluntary placement. 1230 Spoke to [facility], no beds available at this time. 1245 Spoke to [facility], beds available for in patient, voluntary ad mission. Will fax labs. [id number] Sitting in chair, no complaints. [address] Suresh, accepted patient for voluntary admission at [facility] 1430 Patient agreeable to transfer by Supriya Bush to [facility]. She has remained stable, no complaints. Initial ECG Impression Date: Jan 01, 2020 Initial ECG Impression Time: 13:40 Initial ECG Rate: 73 Initial ECG Rhythm: Normal Sinus Initial ECG Intervals: Normal Initial ECG Intervals MT 138; QRSD 87; QT 375; QTc 414 Dickey P -15; QRS 40; T 21 Initial ECG Impression: Normal Initial ECG Comparisson: No Previous ECG Available Departure Impression Primary Impression: Depression Qualified Codes: F32.9 - Major depressive disorder, single episode, unspecified Additional Impression: Suicidal ideations Disposition: SHT-TRM HOSP Condition: Stable Departure-Patient Inst. Decision time for Depature: 14:30 Referrals: DELMIS ABDI MD (PCP) Primary Care Physician CAROLINA OILVEIRA APRN (Family) Primary Care Physician Patient Instructions: Depression, Adult (DC), Suicide Prevention Copy Copies To 1: DELMIS ABDI MD, AMY ARNP Jan 01, 2020 13:10
[2020-01-01 13:25] LABS: TSH (THYROID ANALYZER) 5.17 UIU/ML (0.35-4.94)
[2020-01-01 14:14] LABS: FREE T4 (FREE THYROXINE) 0.81 NG/DL (0.70-1.48)
== END 2020-01-01 15:06 ==
LOC: ER 11:29
DX: R45.851 Suicidal ideations (principal); F17.200 Nicotine dependence, unspecified, uncomplicated; F32.9 Major depressive disorder, single episode, unspecified; F41.9 Anxiety disorder, unspecified
CPT/HCPCS: 36415; 80053; 80306; 80320; 80329; 81000; 84439; 84443; 84703; 85025; 93005